=== PATIENT | male | born 1950 | race Caucasian/White ===

== ENCOUNTER 2017-10-07 08:54 | Day surgery (SDC) | payer MEDICARE, OTHER ==
[~2017-10-07 08:54] MED LIST: BRIMONIDINE 0.2% OPHTH DROPS 5 ML ONE; BSS/LIDOCAINE/EPINEPHRINE 1 ML SYRINGE ONE; CYCLOPENTOLATE 1% OPHTH DROPS 2 ML ONE; KETOROLAC 0.45% OPHTH DROPS ONE; PHENYLEPHRINE 2.5% OPHTH 2 ML DROPS ONE; PROPARACAINE 0.5% OPHTH DROPS 15 ML ONE; TIMOLOL 0.5% OPHTH DROPS ONE
[2017-10-07] MEDS ORDERED: LACTATED RINGERS 1,000 ML IV ONE (09:17)
[2017-10-07 09:31] VITALS: BP 144/80
== END 2017-10-07 08:55 | disposition home or self-care (01) ==
LOC: SDS 08:54
PROVIDERS: ATTEND Ophthalmology
DX: Z53.9 Procedure and treatment not carried out, unspecified reason (principal)

== ENCOUNTER 2017-11-04 08:27 | Day surgery (SDC) | payer MEDICARE, OTHER ==
[2017-11-04] MEDS ORDERED: BRIMONIDINE 0.2% OPHTH DROPS 5 ML EACHEYE ONE (08:28)
[2017-11-04] MEDS ORDERED: TIMOLOL 0.5% OPHTH DROPS EACHEYE ONE (08:28)
[2017-11-04] MEDS ORDERED: MIDAZOLAM 2 MG/2 ML VIAL IVP ONE (08:47)
[2017-11-04] MEDS ORDERED: PROPARACAINE 0.5% OPHTH DROPS 15 ML ONE (09:12)
[2017-11-04] MEDS ORDERED: PHENYLEPHRINE 2.5% OPHTH 2 ML DROPS ONE (09:12)
[2017-11-04] MEDS ORDERED: CYCLOPENTOLATE 1% OPHTH DROPS 2 ML ONE (09:12)
[2017-11-04] MEDS ORDERED: KETOROLAC 0.45% OPHTH DROPS ONE (09:12)
[2017-11-04] MEDS ORDERED: CYCLOPENTOLATE 1% OPHTH DROPS 2 ML LEFTEYE ONE (09:24)
[2017-11-04] MEDS ORDERED: PHENYLEPHRINE 2.5% OPHTH 2 ML DROPS LEFTEYE ONE (09:24)
[2017-11-04] MEDS ORDERED: PROPARACAINE 0.5% OPHTH DROPS 15 ML LEFTEYE ONE ×2 (09:24→09:46)
[2017-11-04] MEDS ORDERED: KETOROLAC 0.45% OPHTH DROPS LEFTEYE ONE (09:24)
[2017-11-04] MEDS ORDERED: LACTATED RINGERS 500 ML IV ONE (09:31)
[2017-11-04] MEDS ORDERED: CHONDR SULF/HYALURONATE SYRINGE IO ONE ×2 (09:45)
[2017-11-04] MEDS ORDERED: BRIMONIDINE 0.2% OPHTH DROPS 5 ML OPTH ONE (09:45)
[2017-11-04] MEDS ORDERED: TIMOLOL 0.5% OPHTH DROPS OPTH ONE (09:45)
[2017-11-04] MEDS ORDERED: EPINEPHrine 1 MG/ML AMP IVP ONE (09:45)
[2017-11-04] MEDS ORDERED: TRIAMCIN/MOXIFLOX/VANCO 1 ML VIAL IO ONE (09:46)
[2017-11-04] MEDS ORDERED: BSS/LIDOCAINE/EPINEPHRINE 1 ML SYRINGE IO ONE ×2 (09:46)
[2017-11-04] MEDS ORDERED: ACETYLCHOLINE 20 MG/2 ML KIT IO ONE (10:11)
[2017-11-04] MEDS ORDERED: CARBACHOL 0.01% 1.5 ML VIAL IO ONE (10:22)
[2017-11-04] MEDS ORDERED: ACETAMINOPHEN 1,000 MG/100 ML 100 ML IV ONE (10:35)
[2017-11-04 10:45] VITALS: BP 133/77
--- NOTE | 2017-11-04 11:57 | OPERATIVE REPORT ---
DATE OF SERVICE: 11/04/2017 Physician: Sunil Ellis MD PREOPERATIVE DIAGNOSIS: Visually significant cataract, left eye. Cataract surgery was performed on the right eye on 23 January 2016 with subsequent subluxation of the lens requiring iris suture of the lens in the right eye. Also, this was a complex cataract surgery due to no red reflex from the density of the lens requiring Trypan Blue staining of the anterior capsule, and also a small pupil requiring Malyugin ring for mechanical dilation of the pupil. 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 POSTOPERATIVE DIAGNOSIS: Visually significant cataract, left eye. Cataract surgery was performed on the right eye on 23 January 2016 with subsequent subluxation of the lens requiring iris suture of the lens on the right eye. Also, this was a complex cataract surgery due to no red reflex from the density of the lens requiring Trypan Blue staining of the anterior capsule and also a small pupil requiring Malyugin ring for mechanical dilation of the iris. 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 PROCEDURE: Phacoemulsification with posterior chamber intraocular lens implant , left eye. SURGEON: Sunil Ellis M.D. ANESTHESIA: Monitored anesthesia care. COMPLICATIONS: None. OPERATIVE INDICATIONS: This is a 67-year-old man with progressive vision loss in the left eye due to 4+ nuclear sclerotic and 4+ posterior subcapsular cataract due primarily to having had a vitrectomy for a retinal detachment late in 2016. Best corrected visual acuity was 20/400 with glare to hand motion vision in the left eye. INDICATIONS FOR SURGERY: Overall decrease in vision, difficulty seeing words on a computer screen, difficulty reading, difficulty seeing words, closed caption or game scores on TV, difficulty seeing street signs, difficulty driving with low light or at night, difficulty driving at night because of headlights from other vehicles, and difficulty with glare or bright lights in any situation. He was consented at length concerning risks and benefits of cataract surgery, especially given the density of the lens and having had a vitrectomy, after which he expressed a desire to proceed with surgery. OPERATIVE PROCEDURE: The patient was taken into OR #3 and placed under monitored anesthesia care. A surgical timeout was conducted confirming correct patient, correct procedure, and correct surgical site. He was given topical anesthesia and then prepped and draped in the usual sterile fashion. The eye was entered at the 6 and 3 o'clock positions. Intracameral Shugarcaine was injected into the anterior chamber, followed by Viscoat. At this point, the Malyugin ring was injected into the anterior chamber and engaged the pupillary margin at 4 points to dilate the pupil. BSS was injected underneath the Viscoat to clear a path for an air bubble. An air bubble was injected underneath the Viscoat and on top of the anterior capsule. Trypan blue was then injected and spread along the surface of the anterior capsule. Additional Viscoat was injected into the anterior chamber to evacuate the bubble. Then, a continuous-tear curvilinear capsulorrhexis was performed. The nucleus was hydrodissected and phacoemulsified; however, signs of trouble started early with trying to hydrodissect and elevate the IOL. There was really no resistance to flow and no fluid-wave noticed behind the lens. The lens would not budge, so I suspected that there was a posterior capsular rent from the get go. In about the middle of phacoemulsification there was an obvious rent in the back capsule, but nothing seemed to be coming through it from the posterior side since there was no vitreous and the lens was pretty well adhered to the bag, so no parts of the lens appeared to fall through the capsular rent. After the nucleus was removed,the cortex was easily evacuated using automated infusion and aspiration. Since it had a capsular rent, but an intact anterior capsule, Provisc was injected into the sulcus space and a 3-piece SX8281 16.5 diopter intraocular lens was inserted into the sulcus and placed into optic capture. Approximately 0.7 mL of a mixture of triamcinolone and moxifloxacin was injected subconjunctivally in the superior quadrant for infection and inflammation prophylaxis. The Malyugin ring was then disinserted from the pupillary margin and removed from the anterior chamber. I and A was used to evacuate the viscoelastic materials and to ensure that the lens was in iris capture. The lens sort of popped in and out of rhexis capture, so Miostat was injected into the eye to cover the IOL with iris. The eye was then inflated to physiologic pressure using balanced salt solution and found to be watertight. The patient was taken from the operating room in good condition and given postoperative instructions. TD: 11/04/2017 10:33 ANUPAMA
== END 2017-11-04 08:28 | disposition home or self-care (01) ==
LOC: SDS 08:27
PROVIDERS: ATTEND Ophthalmology
PROC: 08RK3JZ Replacement of Left Lens with Synthetic Substitute, Percutaneous Approach (ICD-10-PCS; principal; 2017-11-04 09:30)
DX: H25.812 Combined forms of age-related cataract, left eye (principal)
CPT/HCPCS: 66984; A9270; J0131; J3490; V2632